=== PATIENT | male | born 1950 | race Caucasian/White ===

== ENCOUNTER → 2021-08-10 | Outpatient (CLI) | payer MEDICARE, OTHER ==
--- NOTE | 2021-08-10 12:57 | KCIC ---
MR LUMBAR SPINE [id number] History: Reason: Compession fx of L2 / Spl. Instructions: / History: NKI. Suspected fx of L2, right hip pain. Technique: Multiplanar, multi sequential MR imaging was performed of the lumbar spine. Comparison: None Findings: L2 superior endplate mild chronic compression deformity with Schmorl's node. No acute fracture. L2 ve rtebral body hemangioma. Additional hemangioma within T11 vertebral body. Small disc bulge. No canal or neuroforaminal narrowing. L1-L2: Small disc bulge. Mild subarticular recess narrowing. No canal narrowing. Mild facet arthropa thy. While the bilateral neuroforaminal narrowing. L2-L3: Small broad-based disc bulge. Moderate facet arthropathy. No canal narrowing. Mild subarticul ar recess narrowing. Mild bilateral neuroforaminal narrowing. L3-L4: Small broad-based disc bulge. Moderate facet arthropathy. No canal narrowing. Mild bilateral neuroforaminal narrowing. L4-L5: Disc bulge with left paracentral disc extrusion small extending inferiorly. No canal narrowin g. Moderate facet arthropathy. Mild left subarticular recess narrowing. Mild bilateral neuroforaminal narrowing. L5-S1: Small disc bulge. Mild facet arthropathy. No canal narrowing. Mild left neuroforaminal narrow ing. Impression: 1. Mild chronic L2 superior endplate compression deformity with Schmorl's node. 2. Mild lumbar spondylosis. 3. Mild neuroforaminal narrowing. Electronically signed by: Jonn Goodwin DO (08/10/2021 12:55 PM) [id number]
== END ==
LOC: KCIC MRI 10:36
PROVIDERS: ATTEND Nurse Practitioner Family
DX: S32.020A Wedge compression fracture of second lumbar vertebra, initial encounter for closed fracture (principal); M47.817 Spondylosis without myelopathy or radiculopathy, lumbosacral region; M51.37 Other intervertebral disc degeneration, lumbosacral region; M48.07 Spinal stenosis, lumbosacral region; M51.46 Schmorl's nodes, lumbar region; D18.09 Hemangioma of other sites; X58.XXXA Exposure to other specified factors, initial encounter; Y93.89 Activity, other specified; Y92.89 Other specified places as the place of occurrence of the external cause; Y99.8 Other external cause status
CPT/HCPCS: 72148